=== PATIENT | male | born 1975 | race Caucasian/White ===

== ENCOUNTER → 2016-05-12 08:11 | Emergency (ER) | payer SELFPAY ==
--- NOTE | 2016-05-12 09:24 | ED ---
Laceration/Wound HPI - HPI Summary HPI Summary: Patient [facility] from [facility] d/t left 5th finger laceration after cutting fruit this morning. Tetanus 4 years ago per patient. Denies other injuries. Laceration is approx .75cm in length and .25cm depth. Bleeding controlled on arrival. Denies blood thinners or PMHx. - History of Current Complaint Stated Complaint: FINGER LAC Time Seen by Provider: 05/12/16 08:20 Hx Obtained From: Patient Mechanism of Injury: Sharp/Blunt Trauma Onset/Duration: Sudden Onset Aggravating: Nothing Alleviating: Nothing Onset Severity: Moderate Current Severity: Moderate Pain Intensity: 3 Pain Scale Used: 0-10 Numeric Associated Signs & Symptoms: Pain Related Hx: Dominant Hand (Right) - Allergy/Home Medications Allergies/Adverse Reactions: Allergies Allergy/AdvReac Type Severity Reaction Status Date / Time No Known Allergies Allergy Verified 05/12/16 08:12 PMH/Surg Hx/FS Hx/Imm Hx Previously Healthy: Yes Endocrine/Hematology History: Denies: Hx Diabetes - Surgical History Surgery Procedure, Year, and Place: RIGHT HAND SURGERY FOR BOXERS FX Infectious Disease History: No Infectious Disease History: Denies: Traveled Outside the [place] in Last 30 Days - Social History Alcohol Use: None Substance Use Type: Reports: None Smoking Status (MU): Current Every Day Smoker Review of Systems Constitutional: Negative Cardiovascular: Negative Respiratory: Negative Genitourinary: Negative Positive: no symptoms reported, see HPI Musculoskeletal: Negative Positive: Other Neurological: Negative Psychological: Normal All Other Systems Reviewed And Are Negative: Yes Physical Exam Triage Information Reviewed: Yes Vital Signs On Initial Exam: Initial Vitals Temp Pulse Resp BP Pulse Ox 97.8 F 73 18 133/71 98 05/12/16 08:13 05/12/16 08:13 05/12/16 08:13 05/12/16 08:13 05/12/16 08:13 Vital Signs Reviewed: Yes Appearance: Positive: Well-Appearing, Well-Nourished Skin: Positive: Warm, Skin Color Reflects Adequate Perfusion, Other - 1cm laceration to dorsum of left 5th finger over PIP joint Head/Face: Positive: Normal Head/Face Inspection Eyes: Positive: TRAVIS Neck: Positive: Supple, No Lymphadenopathy Respiratory/Lung Sounds: Positive: Clear to Auscultation, Breath Sounds Present Cardiovascular: Positive: Normal Musculoskeletal: Positive: Normal, Strength/ROM Intact Neurological: Positive: Normal, Sensory/Motor Intact, Speech Normal Psychiatric: Positive: Normal - [place] Coma Scale Coma Scale Total: 15 Procedures - Laceration/Wound Repair 1 Location: upper extremity Description: Linear Anesthesia: Local, 2.0%, Lido Betadine Prep?: No Laceration/Wound Explored: clean - .75cm length, .25cm depth. 0 width Closure: Single Layer - 2 sutures Suture Type: Prolene Layer Closure?: No Sterile Dressing Applied?: No Diagnostics - Vital Signs Vital Signs Temp Pulse Resp BP Pulse Ox 05/12/16 08:13 97.8 F 73 18 133/71 98 - Laboratory Lab Statement: Any lab studies that have been ordered have been reviewed, and results considered in the medical decision making process. Laceration Repair Course/Dx - Course Course Of Treatment: Wound irrigated and cleaned. 2 sutures placed. .75cm length, .25cm depth. Bleeding controlled. antibiotic ointment with bandaid. Covered in gauze and taped. Patient tolerated well. Discharged home with return precautions and suture removal in 7 days. - Differential Dx Differental Diagnoses: Joint Infection, Laceration, Puncture Wound, Tendon Laceration - Clinical Impression Provider Diagnoses: Laceration of left little finger Discharge - Discharge Plan Condition: Stable Disposition: HOME Patient Education Materials: Care For Your Stitches (ED), Stitches Removal (ED) Referrals: Julain SUN,Rocael Leggett [Primary Care Provider] - Additional Instructions: Suture removal in 7 days. If you develop signs of infection such as red streaking up the hand, discharge from the area, swelling, or you develop a fever, come back to ED. Images - Images Hands: 1 - .75cm laceration
[2016-05-12 09:59] VITALS: BP 125/71
== END | disposition home or self-care (01) ==
LOC: ED 08:11
DX: S61.217A Laceration without foreign body of left little finger without damage to nail, initial encounter (principal); W26.0XXA Contact with knife, initial encounter; Y93.G1 Activity, food preparation and clean up; Y92.9 Unspecified place or not applicable; Y99.9 Unspecified external cause status
CPT/HCPCS: 99281